=== PATIENT | male | born 2000 | race Hispanic/Latino ===

== ENCOUNTER 2022-06-11 17:42 | Emergency (ER) | payer OTHER ==
[~2022-06-11] VITALS: Ht 190.5 cm; Wt 111.2 kg
[2022-06-11 17:42] VITALS: BP 133/76
[2022-06-11] MEDS ORDERED: NS 1,000 ML IV ONE (18:10)
[2022-06-11] MEDS ORDERED: KETOROLAC 30 MG/ML 1ML VIAL IV ONE (18:10)
[2022-06-11 18:49] LABS: BASO % 0.1 % (0.0-1.0); EOS # 0.1 10^3/uL (0.0-0.5); EOS % 1.1 % (0.0-3.0); HEMATOCRIT 43.9 % (42.0-52.0); HEMOGLOBIN 15.2 g/dl (13.5-17.5); LYMPH # 1.9 10^3/uL (1.5-5.0); LYMPH % 22.6 % (24.0-44.0); MEAN CORPUSCULAR HEMOGLOBIN 30.8 pg (27.0-33.0); MEAN CORPUSCULAR HGB CONC 34.6 g/dl (32.0-36.5); MONO # 0.6 10^3/uL (0.0-0.8); NEUTROPHILS # 5.8 10^3/uL (1.5-8.5); PLATELET COUNT, AUTOMATED 222 10^3/uL (150-450); RED BLOOD COUNT 4.93 10^6/uL (4.30-6.10); WHITE BLOOD COUNT 8.4 10^3/uL (4.0-10.0)
[2022-06-11 19:09] LABS: ALBUMIN 3.7 GM/DL (3.2-5.2); ALT/SGPT 20 U/L (12-78); BILIRUBIN,DIRECT 0.1 MG/DL (0.0-0.2); BILIRUBIN,TOTAL 0.4 MG/DL (0.2-1.0); BLOOD UREA NITROGEN 15 MG/DL (7-18); CALCIUM LEVEL 8.9 MG/DL (8.5-10.1); CARBON DIOXIDE LEVEL 30 MEQ/L (21-32); CHLORIDE LEVEL 105 MEQ/L (98-107); CREATININE FOR GFR 1.49 MG/DL (0.70-1.30); GLUCOSE, FASTING 90 MG/DL (70-100); LIPASE 161 U/L (73-393); POTASSIUM SERUM 4.1 MEQ/L (3.5-5.1); SODIUM LEVEL 139 MEQ/L (136-145); TOTAL PROTEIN 7.3 GM/DL (6.4-8.2)
[2022-06-11] MEDS ORDERED: TAMSULOSIN 0.4 MG CAP PO ONE (20:05)
[2022-06-11] MEDS ORDERED: CIPROFLOXACIN 500MG TABLET PO ONE (20:05)
[2022-06-11] MEDS ORDERED: CIPR-249 PO (20:15)
[2022-06-11] MEDS ORDERED: FLOM0.4C39 PO (20:15)
[2022-06-11] MEDS ORDERED: KETO10TAB PO (20:15)
== END 2022-06-11 20:22 | disposition home or self-care (01) ==
LOC: M ED 17:42
DX: N20.1 Calculus of ureter (principal); F10.10 Alcohol abuse, uncomplicated; Z79.899 Other long term (current) drug therapy
CPT/HCPCS: 74176; 80048; 80076; 81000; 81002; 81015; 82550; 83690; 85025; 87086; 96361; 96374; 99283; J1885

== ENCOUNTER 2022-06-24 10:41 | Emergency (ER) | payer OTHER ==
[~2022-06-24] VITALS: Ht 190.5 cm; Wt 111.3 kg
[~2022-06-24 10:41] MED LIST: CIPR-249 PO; FLOM0.4C39 PO; KETO10TAB PO
[2022-06-24 11:36] LABS: BASO % 0.2 % (0.0-1.0); EOS % 0.2 % (0.0-3.0); HEMATOCRIT 46.1 % (42.0-52.0); HEMOGLOBIN 15.9 g/dl (13.5-17.5); LYMPH # 1.3 10^3/uL (1.5-5.0); LYMPH % 12.2 % (24.0-44.0); MEAN CORPUSCULAR HEMOGLOBIN 30.7 pg (27.0-33.0); MEAN CORPUSCULAR HGB CONC 34.5 g/dl (32.0-36.5); MONO # 0.4 10^3/uL (0.0-0.8); NEUTROPHILS # 8.8 10^3/uL (1.5-8.5); NEUTROPHILS % 82.9 % (36.0-66.0); PLATELET COUNT, AUTOMATED 230 10^3/uL (150-450); RED BLOOD COUNT 5.18 10^6/uL (4.30-6.10); WHITE BLOOD COUNT 10.6 10^3/uL (4.0-10.0)
[2022-06-24] MEDS ORDERED: ONDANSETRON 4MG 2ML VIAL IV ONE (12:00)
[2022-06-24] MEDS ORDERED: KETOROLAC 30 MG/ML 1ML VIAL IV ONE (12:00)
[2022-06-24 12:34] LABS: ALT/SGPT 34 U/L (12-78); BILIRUBIN,DIRECT < 0.1 MG/DL (0.0-0.2); BILIRUBIN,TOTAL 0.6 MG/DL (0.2-1.0); LIPASE 87 U/L (73-393); POTASSIUM SERUM 5.3 MEQ/L (3.5-5.1); TOTAL PROTEIN 7.9 GM/DL (6.4-8.2)
[2022-06-24] MEDS ORDERED: NS 1,000 ML IV ONE (14:15)
[2022-06-24] MEDS ORDERED: TAMSULOSIN 0.4 MG CAP PO ONE (14:15)
[2022-06-24] MEDS ORDERED: HYDR-3713 PO (15:36)
[2022-06-24] MEDS ORDERED: FLOM0.4C39 PO (15:36)
[2022-06-24] MEDS ORDERED: KETO10TAB PO (15:36)
[2022-06-24 16:11] VITALS: BP 136/75
== END 2022-06-24 16:14 | disposition home or self-care (01) ==
LOC: M ED 10:41
DX: N20.1 Calculus of ureter (principal); N13.30 Unspecified hydronephrosis; Z87.442 Personal history of urinary calculi; Z79.899 Other long term (current) drug therapy
CPT/HCPCS: 74176; 76705; 80047; 80076; 81000; 81015; 83690; 84132; 85025; 96361; 96374; 96375; 99284; J1885; J2405